=== PATIENT | male | born 1945 | race Caucasian/White ===

== ENCOUNTER 2017-06-21 18:39 | Inpatient (IN) | payer OTHER, MEDICAID ==
[2017-06-21] MEDS ORDERED: NS 1,000 ML IV ONE (18:53)
--- NOTE | 2017-06-21 18:56 | EDPHY ---
H & P HPI/ROS: CHIEF COMPLAINT: Fever and weakness History by patient's policy service coordinator HISTORY OF PRESENT ILLNESS: 71-year-old man with history of severe developmental delay, seizures in COPD is brought in by his policy service coordinator because of fever to 102.5 earlier today. Patient's policy service coordinator notes that when he came home from his day program on Thursday he did not quite seem quite his usual self. Yesterday he was somewhat weaker than usual and then today was unable to walk which is not typical for him. He also seemed to have some shaking chills and the policy service coordinator took his temperature and found the fever. The patient is normally nonverbal and is unable to provide any history. Patient is noted to be grunting which the policy service coordinator says is normal for him however he says that his respiratory rate and work of breathing increased. He also thinks the patient was having some left arm pain earlier today. There has been no nausea, vomiting or diarrhea. He has been eating as well as usual. There has been no change in his chronic cough. REVIEW OF SYSTEMS: Unavailable due to the patient's developmental delay Source: Other - Medical/Surgical History Hx Asthma: No Hx Chronic Respiratory Disease: No Hx Diabetes: No Hx Cardiac Disease: No Hx Renal Disease: No Hx Cirrhosis: No Hx Alcoholism: No Hx HIV/AIDS: No Hx Splenectomy or Spleen Trauma: No Other PMH: developmental disability - Social History Smoking Status: Never smoked - Physical Exam Exam: General Appearance: Alert, ill-appearing, grunting. Head: normocephalic, atraumatic Eyes: Pupils equal and round, reactive to light, no pallor or injection. Mouth: Mucous membranes dry. Respiratory: Increased effort, lungs with few crackles and upper airway noises. No wheezes or rhonchi. Cardiovascular: Tachycardic S1, S2, no murmurs, gallops or rubs appreciated Gastrointestinal: Abdomen is soft and nontender, no masses, bowel sounds normal. Back: No CVA tenderness, no bony tenderness Neurological: Awake, alert and moving all extremities equally Skin: Warm and dry, no rashes. Multiple chronic skin lesions Musculoskeletal: No deformities or tenderness. Extremities: full range of motion, no edema, DP2+ bilat Psychiatric: Unable to assess due to the patient's developmental delay and dementia. Constitutional: Initial Vital Signs Temperature (C) 37.6 C 06/21/17 18:50 Heart Rate 114 H 06/21/17 18:50 Respiratory Rate 48 H 06/21/17 18:50 Blood Pressure 138/114 H 06/21/17 18:50 O2 Sat (%) 92 06/21/17 18:50 O2 Delivery Mode Room Air Allergies/Adverse Reactions: Phenothiazines Allergy (Verified 06/21/17 18:50) Unknown Home Medications: Medication Instructions Recorded ACETAMINOPHEN 06/21/17 ASPIRIN 06/21/17 GUAIFENESIN 06/21/17 Hydrocortisone 06/21/17 PHENobarbital 06/21/17 Proair Hfa 06/21/17 Senna-S Tablet 06/21/17 Triamcinolone 0.1% 06/21/17 Medical Decision Making - Diagnostics Imaging Results: Imaging Impressions Chest X-Ray 06/21/17 18:52 Impression: 1. Pneumonitis or early pneumonia suspected left upper lobe. 2. Poor inspiration with compressive changes once again noted at the lung bases. Findings discussed with Sola Vergara MD at 20:18 hour, 06/21/2017. Imaging: I viewed and interpreted images myself ED Course/Re-evaluation: 71-year-old man with severe developmental disability is brought in by his policy service coordinator because of fever, chills and weakness. He was initially quite tachypneic but this improved along with his tachycardia after IV fluids. Labs are notable for an elevated white blood cell count and elevated lactate. Chest x -ray showed no obvious pneumonia. Urinalysis is pending at time dictation. Rapid flu was negative. Patient was given IV fluids and started on broad- spectrum antibiotics for presumed sepsis. I discussed the case with Dr. John Hu, hospitalist distribution sales representative who accepts the patient in transfer for inpatient care. I discussed the plan with the patient's policy service coordinator. I did receive a call from the radiologist who was concerned about a possibility of a infiltrate in the left upper lobe. Patient is not hypoxic and minimal change in his respiratory status. The patient has been covered for pneumonia with Invanz he received. - Data Points Laboratory Results: Laboratory Results 06/21/17 19:00 06/21/17 19:00 06/21/17 06/21/17 06/21/17 19:00 19:00 19:00 WBC RBC Hgb Hct MCV MCH MCHC RDW Plt Count MPV Neut % (Auto) Lymph % (Auto) Hemphill % (Auto) Eos % (Auto) Baso % (Auto) Nucleat RBC Rel Count Absolute Neuts (auto) Absolute Lymphs (auto) Absolute Monos (auto) Absolute Eos (auto) Absolute Basos (auto) Absolute Nucleated RBC Immature Gran % Immature Gran # VBG Lactic Acid Sodium 136 mEq/L mEq/L (134-144) Potassium 4.2 mEq/L mEq/L (3.5-5.2) Chloride 95 mEq/L L mEq/L (97-110) Carbon Dioxide 26 mEq/l mEq/l (22-31) Anion Gap 15 mEq/L mEq/L (8-16) BUN 9 mg/dL mg/dL (7-23) Creatinine 0.6 mg/dL L mg/dL (0.7-1.3) Estimated GFR > 60 Glucose 157 mg/dL H mg/dL (70-100) Calcium 8.4 mg/dL L mg/dL (8.5-10.4) Nasal Influenza A PCR Pending Nasal Influenza B PCR Pending Phenobarbital Pending 06/21/17 06/21/17 19:00 19:00 WBC 11.16 10^3/uL H 10^3/uL (3.80-9.50) RBC 4.75 10^6/uL 10^6/uL (4.40-6.38) Hgb 15.7 g/dL g/dL (13.7-17.5) Hct 45.6 % % (40.0-51.0) MCV 96.0 fL fL (81.5-99.8) MCH 33.1 pg pg (27.9-34.1) MCHC 34.4 g/dL g/dL (32.4-36.7) RDW 12.5 % % (11.5-15.2) Plt Count 215 10^3/uL 10^3/uL (150-400) MPV 10.3 fL fL (8.7-11.7) Neut % (Auto) 83.3 % H % (39.3-74.2) Lymph % (Auto) 8.6 % L % (15.0-45.0) Hemphill % (Auto) 7.6 % % (4.5-13.0) Eos % (Auto) 0.1 % L % (0.6-7.6) Baso % (Auto) 0.1 % L % (0.3-1.7) Nucleat RBC Rel Count 0.0 % % (0.0-0.2) Absolute Neuts (auto) 9.30 10^3/uL H 10^3/uL (1.70-6.50) Absolute Lymphs (auto) 0.96 10^3/uL L 10^3/uL (1.00-3.00) Absolute Monos (auto) 0.85 10^3/uL H 10^3/uL (0.30-0.80) Absolute Eos (auto) 0.01 10^3/uL L 10^3/uL (0.03-0.40) Absolute Basos (auto) 0.01 10^3/uL L 10^3/uL (0.02-0.10) Absolute Nucleated RBC 0.00 10^3/uL 10^3/uL (0-0.01) Immature Gran % 0.3 % % (0.0-1.1) Immature Gran # 0.03 10^3/uL 10^3/uL (0.00-0.10) VBG Lactic Acid 2.3 mmol/L H mmol/L (0.7-2.1) Sodium Potassium Chloride Carbon Dioxide Anion Gap BUN Creatinine Estimated GFR Glucose Calcium Nasal Influenza A PCR Nasal Influenza B PCR Phenobarbital Medications Given: Discontinued Medications Ertapenem (Invanz) 1 gm IVP EDNOW ONE PRN Reason: Protocol Stop: 06/21/17 19:33 Last Admin: 06/21/17 19:49 Dose: 1 gm Sodium Chloride (Ns) 1,000 mls @ 0 mls/hr IV ONCE ONE; Wide Open PRN Reason: Protocol Stop: 06/21/17 18:54 Last Admin: 06/21/17 19:00 Dose: 1,000 mls Sodium Chloride (Ns) 1,900 mls @ 3,800 mls/hr 30 ml/kg infuse over 30 min ( 1900 ml) IV EDNOW ONE PRN Reason: Protocol Stop: 06/21/17 20:01 Last Admin: 06/21/17 19:39 Dose: 1,900 mls Departure - Departure Disposition: [facility] Inpatient Acute Clinical Impression: Sepsis Qualifiers: Sepsis type: sepsis due to unspecified organism Qualified Code(s): A41.9 - Sepsis, unspecified organism Condition: Fair
[2017-06-21 19:13] LABS: PLATELET COUNT 215 10^3/uL (150-400)
[2017-06-21] MEDS ORDERED: ERTAPENEM 1 GM VIAL IVP ONE (19:32)
[2017-06-21] MEDS ORDERED: NS 1,900 ML IV ONE (19:32)
[2017-06-21] MEDS ORDERED: ONDANSETRON 4 MG/2 ML VIAL IVP PRN (22:33)
[2017-06-21] MEDS ORDERED: ACETAMINOPHEN 325 MG TAB PO PRN (22:33)
[2017-06-21] MEDS ORDERED: ALBUTEROL 3 ML DEYVIAL IH PRN (22:44)
[2017-06-21] MEDS ORDERED: IPRATROPIUM/ALBUTEROL 3 ML DEYVIAL IH PRN (22:44)
[2017-06-21] MEDS ORDERED: LR 1,000 ML IV SCH (23:00)
--- NOTE | 2017-06-22 00:34 | GHP ---
[f rep st] HISTORY AND PHYSICAL DATE OF ADMISSION: 06/21/2017 SOURCE: Patient is nonverbal at baseline, with a history of developmental delay. History obtained after discussion with accepting provider and review of EMR. CHIEF COMPLAINT: Fevers and generalized weakness. HISTORY OF PRESENT ILLNESS: This is a 71-year-old gentleman with past medical history significant for developmental delay and nonverbal status, seizure disorder, COPD, reflux esophagitis, and history of tobacco abuse, who presents to the emergency department at [facility] [place] his protection manager, for generalized weakness for 2-3 days, as well as development of fever today to over 101. The patient also has been increasingly fatigued over the weekend, which is unusual for him. He has a chronic cough at baseline, with history of COPD, which was reported to be unchanged from baseline. The patient does go to an adult daycare program , and protection manager reported to ED provider that after he returned on Thursday from the program, he appeared to have some subtle changes in behavior. Again, patient is nonverbal at baseline. He occasionally grunts, which is also baseline, on arrival to the [facility] Director Perioperative had noted the patient did have some increased work of breathing along with the measured temperature at home. REVIEW OF SYSTEMS: Unable to obtain from the patient, and protection manager has left for the evening. ALLERGIES: Phenothiazines. HOME MEDICATIONS: As per EMR: Hydrocortisone 0.2% cream applied b.i.d., aspirin 81 mg p.o. daily, phenobarbital 64.8 mg p.o. daily and 129.6 mg p.o. h.s. PAST MEDICAL HISTORY: Significant for developmental delay; influenza in 2012, for which patient was hospitalized; seizure disorder; COPD, with history of tobacco abuse, unknown if it is persistent; reflux esophagitis. PAST SURGICAL HISTORY: Unable to obtain secondary to patient's nonverbal status. FAMILY HISTORY: Unable to obtain as above. SOCIAL HISTORY: The patient does go to adult daycare program and has a protection manager in the evenings and weekends. Unknown if patient is actively using tobacco at this time. No reported drugs or alcohol. CODE STATUS: Presumed full code at this time. Again, take protection manager left for the evening, and there is no advanced directive or MOST form in place or available. Will need to clarify in the morning when protection manager arrives. PHYSICAL EXAMINATION: VITAL SIGNS: Upon arrival to [facility]: Blood pressure was 138/114, heart rate 114, respiratory rate 48, O2 saturation 92% on room air with a temperature 37.6. Current vitals: Blood pressure 120/78, heart rate is 81, respiratory rate 20, O2 saturation 94% on room air with a temperature 36.6. GENERAL: In no acute distress. Pleasant, nonverbal, older gentleman, who is resting quietly awake in the bed. He is not agitated. He is trying to be interactive, but unable to follow any commands. HEAD: Normocephalic, atraumatic. EYES: Extraocular muscles grossly intact. Patient unable to follow commands for testing. There is no scleral icterus or conjunctival injection. Pupils are equal, round, reactive to light bilaterally and symmetric. ENT: Mucous membranes appear slightly dry, but unable to obtain full exam as patient is unable to open his mouth for evaluation under light. No nasal discharge. NECK: Supple. Trachea midline. CV: Regular rate and rhythm, 2/6 systolic murmur appreciated. RESPIRATORY: Patient with unlabored breathing. He is diminished in all lung lopez. A few crackles in the left greater than the right base. No wheezes or rhonchi appreciated. ABDOMEN: Soft. No apparent discomfort with palpation. No rebound or guarding appreciated. Positive bowel sounds. : No apparent suprapubic tenderness to palpation. No Rice catheter in place. EXTREMITIES: Patient with trace pitting pretibial edema and particularly in his feet. He has 1+ pedal pulses bilaterally. He is able to move all his extremities voluntarily, but not able to follow any commands. NEURO: Limited secondary to patient's developmental delay, but moves all extremities voluntarily. No facial drooping. Grossly nonfocal. PSYCH: The patient is nonverbal. He does mumble intermittently during the visit. He is not agitated. He does try to be interactive. He reaches out to hold hands. LABORATORY STUDIES: WBCs 11.6, H and H is 15.7 and 45.6, MCV of 96.0, platelet count 215, neutrophil percent 83.3%, no bands. Sodium is 136, potassium 4.2, chloride 95, CO2 is 26, anion gap 15, BUN 9, creatinine 0.6, GFR greater than 60 , glucose 157, calcium 8.4. Lactic acid is 2.3. UA with specific gravity 1.010 , pH is 6.0, is clear, otherwise negative. PCR for flu A/B is pending. Rapid flu A/B was negative. Phenobarbital level is pending. Respiratory panel is pending. Preliminary did result in a positive RSV PCR status. IMAGING STUDIES: Chest x-ray: Image and report reviewed myself. Pneumonitis or early pneumonia in the left upper lobe with patchy infiltrate. Poor inspiration with compressive changes in the lung bases. No pneumothorax. Lung base changes are similar to 2013 study. ASSESSMENT AND PLAN: A 71-year-old gentleman with history of developmental delay and nonverbal status, who presents with 2 days of generalized weakness and a fever. 1. Left upper lobe pneumonia versus pneumonitis. The patient with previously reported history of aspiration. Speech Therapy has been consulted. Given patient's sepsis criteria with tachycardia, tachypnea, elevated lactic acid, but normal renal function, the patient was empirically covered with ertapenem to cover for any potential aspiration pneumonia. We will plan to continue this. Blood cultures x2 were already ordered. He did receive a 30 mL/kg bolus in the [facility] [place] to transfer. The patient's vital signs at this time have normalized, and he is no longer meeting sepsis criteria. There is a repeat lactate that is pending. We will continue with intravenous fluids. Await cultures and continue antibiotics as above. 2. Sepsis. Patient's qSOFA score was 1, with a tachypnea, but mental status did not appear to change, but again is difficult with history of developmental delay. The patient did meet additional sepsis criteria with elevated lactate, tachypnea, tachycardia, and appropriate therapy has been provided prior to his transfer. Appears to have improved. 3. RC positive status. The patient has been placed on droplet precautions. Supportive care. Not requiring any oxygen. 4. Generalized weakness. Occupational Therapy has been consulted. 5. Seizure disorder. Phenobarbital dosing is not available per formulary, and will request the protection manager bring patient's home supply. 6. Hyperglycemia without history of diabetes. Likely this is due to being a nonfasting laboratory study. Will plan to repeat it in the morning. 7. Chronic obstructive pulmonary disease without exacerbation. DuoNebs and albuterol have been ordered p.r.n. No need for any steroid therapy at this time. Patient has received therapeutic coverage with ertapenem for JOEY infiltrate. 8. Tobacco abuse. Will need to clarify if patient has continued use. Will need to monitor for withdrawal symptoms. May require some nicotine replacement. 9. Developmental delay. Supportive care. Patient appears to be at baseline, and per report, usually nonverbal and grunts, which is normal behavior for the patient. He is not agitated at this time. 10. Fluid, electrolyte, nutrition: Status post appropriate sepsis bolus. Will continue with intravenous fluid replacement. As patient at risk for aspiration, he will be made n.p.o. for overnight while awaiting speech therapy evaluation, but this may be limited secondary to patient's developmental delay. 11. Electrolytes: Patient's chloride was slightly decreased. He is status post intravenous fluid hydration. Will plan to repeat a BMP in the morning. Will monitor remainder of electrolytes and replace if needed. 12. Nutrition: Diet as per patient's usual, after speech therapy evaluation tomorrow. 13. Prophylaxis: Sequential compression device, Lovenox. 14. Code status: At this time will be full. Will need to clarify with patient 's protection manager tomorrow. 15. Disposition: For now, patient has been admitted to observation status, as his sepsis criteria has rapidly improved and patient appears to be close to his baseline. Will reassess tomorrow and reconsider patient's admission status. Will defer to the day team after re-evaluation. /[id number]/MODL MTDD
[2017-06-22] MEDS: PHENOBARBITAL 4 MG/ML PO SCH ×3 (01:05→20:47)
[2017-06-22 05:44] LABS: PLATELET COUNT 140 10^3/uL (150-400)
[2017-06-22] MEDS: ASPIRIN 81 MG CHEWABLE TAB PO SCH (09:24)
[2017-06-22] MEDS: ENOXAPARIN 40 MG/0.4 ML SYR SC SCH (09:25)
--- NOTE | 2017-06-22 14:01 | HOSPPROG ---
Hospitalist Progress Note Assessment/Plan: #Sepsis: resolved. Due to RSV #Tachycardia: resolved with IVFs #RSV URI: supportive care #Questionable PNA: likely pneumonitis on CXR. Negative Ertapenem #Developmental delay: nonverbal at baseline, occasional grunting per caregiver Chase. Has been less interactive. #Mild COPD exacerbation: cont nebs #Leukocytosis: due to infection, dehydration. Resolved with IVFs #Weakness: likely due to RSV. Phenobarb level pending #Seizures: check phenobarb level #Diet: regular #DVT ppx: Lovenox #Disp: cont inpatient admission for COPD exacerbation, cont nebs, IVFs. If stable tomorrow, will DC home with caregiver Subjective: nonverbal Objective: Vital Signs Temp Pulse Resp BP Pulse Ox 37.7 C 81 18 119/77 93 06/22/17 11:04 06/22/17 11:04 06/22/17 11:04 06/22/17 11:04 06/22/17 11:04 Laboratory Results 06/22/17 05:26 06/22/17 05:26 06/21/17 06/22/17 06/23/17 05:59 05:59 05:59 Intake Total 2000 Balance 1999 - Physical Exam Constitutional: no apparent distress Eyes: PERRL Ears, Nose, Mouth, Throat: moist mucous membranes Cardiovascular: regular rate and rhythym Respiratory: expiratory wheeze, rhonchi Gastrointestinal: normoactive bowel sounds, soft, non-tender abdomen Genitourinary: no bladder fullness Skin: warm Musculoskeletal: full muscle strength Neurologic: AAOx3, CN II-XII Intact Psychiatric: other (nonverbal) ICD10 Worksheet Patient Problems: Problems Problem Status Onset Pneumonia Active Sepsis Acute
--- NOTE | 2017-06-22 14:49 | ASMTCMCOM ---
CM Note CM Note Notes: Pt has severe developmental delay, is non-verbal at baseline and has caregiver Chase ([phone]) and attends adult daycare. Pt likely connected w [facility] due to DD. Pt has RSV, pt will remain in hosp overnight and likely be ready for d/c tomorrow. OT was unable to obtain PLOF from caregiver and at this time rec SNF vs. 24/hr care. [employer]UTE [employer]ISHER rec LTC. CM to follow. Date Signed: 06/22/2017 02:49 PM Electronically Signed By:LENA Manuel
[2017-06-22] MEDS ORDERED: ERTAPENEM 1 GM VIAL IVP SCH (19:00)
[2017-06-22] MEDS: HYDROCORTISONE 0.2% VALERATE CREAM TP SCH (20:47)
--- NOTE | 2017-06-23 08:19 | HOSPPROG ---
Hospitalist Progress Note Assessment/Plan: #Sepsis: resolved. Due to RSV #Tachycardia: resolved with IVFs #RSV URI: supportive care #Questionable PNA: likely pneumonitis on CXR. Negative Ertapenem #Developmental delay: nonverbal at baseline, occasional grunting per caregiver Chase. Has been less interactive. #Mild COPD exacerbation: cont nebs #Leukocytosis: due to infection, dehydration. Resolved with IVFs #Weakness: likely due to RSV. Phenobarb level pending #Seizures: check phenobarb level #Diet: regular #DVT ppx: Lovenox #Disp: DC today with caregiver Subjective: no acute events Objective: Vital Signs Temp Pulse Resp BP Pulse Ox 36.3 C 70 18 114/69 92 06/23/17 04:00 06/23/17 04:00 06/23/17 04:00 06/23/17 04:00 06/23/17 04:00 Laboratory Results 06/22/17 05:26 06/23/17 04:15 06/22/17 06/23/17 06/24/17 05:59 05:59 05:59 Intake Total 1999 100 Balance 2000 100 - Physical Exam Constitutional: no apparent distress Eyes: PERRL Ears, Nose, Mouth, Throat: moist mucous membranes Cardiovascular: regular rate and rhythym Respiratory: no respiratory distress, no rales or rhonchi Gastrointestinal: normoactive bowel sounds, soft, non-tender abdomen Genitourinary: no bladder fullness Skin: warm Musculoskeletal: full muscle strength, other (left arm with full RoM with passive movement. No overlying erythema, swelling) Neurologic: other (alert, nonverbal) ICD10 Worksheet Patient Problems: Problems Problem Status Onset Sepsis Acute Pneumonia Active
[2017-06-23] MEDS: ASPIRIN 81 MG CHEWABLE TAB PO SCH (10:10)
[2017-06-23] MEDS: ENOXAPARIN 40 MG/0.4 ML SYR SC SCH (10:11)
[2017-06-23] MEDS: PHENOBARBITAL 4 MG/ML PO SCH ×2 (10:12→21:51)
[2017-06-23] MEDS: HYDROCORTISONE 0.2% VALERATE CREAM TP SCH ×2 (10:12→21:50)
--- NOTE | 2017-06-23 11:18 | PDMN ---
Medical Necessity Medical necessity: Change to IP, as of 06/22/17, per MD; los >2 mn for ongoing management of sepsis r/t RSV URI, COPD exacerbation & questionable pneumonia vs pneumonitis; admit for supportive care/monitoring, nebs, IVFs, & therapies; hx developmental delay & nonverbal status, seizures, reflux esophagitis, aphasia; per progress note & order 06/22/17
--- NOTE | 2017-06-23 12:45 | GDS ---
[f rep st] DISCHARGE SUMMARY DISCHARGE DIAGNOSES: Sepsis; tachycardia; respiratory syncytial virus upper respiratory infection; questionable pneumonia; developmental delay, nonverbal at baseline, occasional grunting, per caregiver; mild chronic obstructive pulmonary disease exacerbation; leukocytosis; weakness; seizures. HISTORY OF PRESENT ILLNESS: A 71-year-old male with developmental delay, nonverbal at baseline, seizure disorder, COPD, GERD, presented to the ER with his slots manager for generalized weakness for 2 days and fever of 101. He had been increasingly fatigued over the weekend, which is unusual for him. He does have a chronic cough at baseline with history of COPD, and this was unchanged. He does go to an adult daycare program, and his behavior was subtly changed. HOSPITAL COURSE BY PROBLEM: 1. Sepsis: tachycardic with leukocytosis at admission, likely secondary to RSV. Chest x-ray showed a small infiltrate; however, procalcitonin was negative , so this was likely a pneumonitis. 2. RSV: Supportive care. Stable on room air. 3. Generalized weakness: Again, secondary to RSV. 4. Seizure disorder: Continued phenobarbital. 5. Mild COPD exacerbation: Received nebs here. He is stable on room air. 6. History of tobacco abuse. 7. Developmental delay: He is at his baseline, per caregiver. He occasionally grunts. 8. Mild leukocytosis: Secondary to RSV. This has resolved. DISPOSITION: The patient is stable to discharge home with his 24-hour caregiver. MEDICATIONS: No new medications. FOLLOWUP: With his primary care physician. /[id number]/MODL MTDD
[2017-06-24 07:39] VITALS: TEMP 97.7
[2017-06-24] MEDS: ENOXAPARIN 40 MG/0.4 ML SYR SC SCH (09:04)
[2017-06-24] MEDS: PHENOBARBITAL 4 MG/ML PO SCH (09:04)
[2017-06-24] MEDS: ASPIRIN 81 MG CHEWABLE TAB PO SCH (09:05)
[2017-06-24] MEDS: HYDROCORTISONE 0.2% VALERATE CREAM TP SCH (09:14)
[2017-06-24 11:48] VITALS: BP 131/74; PULSE 75; RESP 16; O2SAT 96
--- NOTE | 2017-06-24 13:38 | GDS ---
[f rep st] DISCHARGE SUMMARY DISCHARGE DIAGNOSES: 1. Respiratory syncytial virus upper respiratory infection. 2. Sepsis. 3. Generalized weakness. 4. Seizure disorder. 5. Mild chronic obstructive pulmonary disease exacerbation. 6. History of tobacco abuse. 7. Developmental delay, nonverbal at baseline. 8. Mild leukocytosis. 9. Left arm pain versus weakness. Please see discharge summary dated 06/23/2017 for full details. He stayed overnight 1 more night given concern of new left arm weakness per his caregiver starting this past weekend. Shoulder and forearm x-rays were negative for an acute fracture. CT head showed possible old chronic infarcts. However, subsequent MRI did not show any acute ischemia. Recommend that he follow up with his primary care for this ongoing issue. PHYSICAL EXAM: VITAL SIGNS: Today, temperature 36.5, blood pressure 123/86, heart rate 70s, respirations 16, 93% on room air. GENERAL: Sitting up in chair. No acute distress. Occasional grunting. HEENT: PERRLA. Moist mucous membranes. CV: Regular rate, rhythm. LUNGS: Clear. No wheezing or crackles. ABDOMEN: Soft, nontender, nondistended. MUSCULOSKELETAL: He is grasping his arm. I can lift easily with passive movement. He does pull back. I asked him to squeeze hand, but it is hard to discern if he is understanding because he would not diagrammer and seamer with either one. There was no evidence of erythema or infection. /[id number]/MODL MTDD
--- NOTE | 2017-06-24 14:26 | ASDISCHSUM ---
Discharge Information Plan Status:Home with No Needs Medically Cleared to Leave: Discharge Date:06/24/2017 01:12 PM CM D/C Disposition:Home, Routine, Self-Care ADT D/C Disposition:Home, Routine, Self-Care Projected Discharge Date:06/24/2017 01:12 PM Transportation at D/C: Discharge Delay Reason: Follow-Up Date:06/24/2017 01:12 PM Discharge Slot: Final Diagnosis: Placement Information Patient Contact Information Contact Name:DINO Relationship:Other Address:[address] [place] Work Phone: City:[facility] Phone: [facility]/Zip Code:[place] [address] Email: Financial Information Financial Class: Primary Plan Desc:MEDICARE INPATIENT Primary Plan Number:[id number] Secondary Plan Desc:MED[place] Secondary Plan Number:[id number] Assessment Information [facility] CM Progress Note CM Note CM Note Notes: Pt has severe developmental delay, is non-verbal at baseline and has caregiver Chase ([phone]) and attends adult daycare. Pt likely connected w [facility] due to DD. Pt has RSV, pt will remain in hosp overnight and likely be ready for d/c tomorrow. OT was unable to obtain PLOF from caregiver and at this time rec SNF vs. 24/hr care. [employer] rec LTC. CM to follow. Date Signed: 06/22/2017 02:49 PM Electronically Signed By:LENA Manuel [facility] CM Progress Note CM Note CM Note Notes: Pt medically stable for d/c back home w 24 hour care and adult daycare services. No CM d/c needs identified. Date Signed: 06/24/2017 02:26 PM Electronically Signed By:LENA Manuel Intervention Information
== END 2017-06-24 13:12 | disposition home or self-care (01) | DRG 872 ==
LOC: CED 18:39 → F3N 21:40 → OBSVTOIN 06-22 15:15
PROVIDERS: ADMIT Internal Medicine; ATTEND Internal Medicine
DX: A41.89 Other specified sepsis (principal); J06.9 Acute upper respiratory infection, unspecified; B97.4 Respiratory syncytial virus as the cause of diseases classified elsewhere; J44.1 Chronic obstructive pulmonary disease with (acute) exacerbation; Z87.891 Personal history of nicotine dependence; G40.909 Epilepsy, unspecified, not intractable, without status epilepticus; F89 Unspecified disorder of psychological development
CPT/HCPCS: 71020-PO; 80048-PO; 81003-PO; 83605-PO; 85025-PO; 87400-PO; 92526-GN; 92610-GN; 96374; 97166-GO; 97530-GO; G0378; G8987-GO-CM; G8988-GO-CK; G8996-GN-CJ; G8997-GN-CJ; J1335; J1650